=== PATIENT | female | born 1970 | race Caucasian/White ===

== ENCOUNTER 2020-12-16 00:40 | Emergency (ER) | payer SELFPAY ==
[~2020-12-16] VITALS: Ht 162.6 cm; Wt 59.0 kg
[2020-12-16 00:40] VITALS: BP 93/48
--- NOTE | 2020-12-16 00:40 | NUR ---
DIA FROM HOME ALS, PT. IS A 50 Y/O FEMALE THAT CAME INTO ED WITH C/O OF ABDOMINAL PAIN. PER [facility], PT. STATED ABOMINAL PAIN UNDER STERNUM. ADMITS TO N/V, DENIES DIARRHEA. [facility] GAVE 4MG OF ZOFRAN. PT. ALSO STATES THAT SHE HAS HERNIA THAT HAS BEEN ON AND OFF FOR 3 YEARS. GCS 15; AAOX4 PMH: HERNIA ALLERGIES NKA
--- NOTE | 2020-12-16 00:40 | NUR ---
PT BROUGHT TO BED 5 VIA [facility]
--- NOTE | 2020-12-16 01:10 | NUR ---
PT. ASKED FOR URINE SAMPLE BUT STATES "I CAN'T GO RIGHT NOW."
--- NOTE | 2020-12-16 01:29 | NUR ---
LAB AT BEDSIDE
[2020-12-16 01:40] LABS: BASOPHILS # (AUTO) 0.1 K/uL (0.00-0.22); BASOPHILS % (AUTO) 0.7 % (0.0-2.0); EOSINOPHILS # (AUTO) 0.1 K/uL (0-0.4); EOSINOPHILS % (AUTO) 1.4 % (0.0-4.0); HEMATOCRIT 34.8 % (36-48); HEMOGLOBIN 11.4 g/dL (12.0-16.0); LYMPHOCYTES # (AUTO) 1.9 K/uL (2.5-16.5); LYMPHOCYTES % (AUTO) 21.7 % (20.5-51.1); MEAN CORPUSCULAR HEMOGLOBIN 31 pg (27-31); MEAN CORPUSCULAR HGB CONC 33 g/dL (33-37); MEAN CORPUSCULAR VOLUME 93.6 fL (80-94); MONOCYTES # (AUTO) 0.6 K/uL (0.8-1.0); MONOCYTES % (AUTO) 6.8 % (1.7-9.3); NEUTROPHILS # (AUTO) 6.2 K/uL (1.8-7.7); NEUTROPHILS % (AUTO) 69.4 % (42.2-75.2); PLATELET COUNT (AUTO) 210 K/uL (140-450); RED BLOOD CELL COUNT(AUTO) 3.72 MIL/uL (4.20-5.40); WHITE BLOOD COUNT (AUTO) 8.9 K/uL (4.8-10.8)
[2020-12-16 01:52] LABS: ALBUMIN 3.5 g/dL (3.4-5.0); ANION GAP 15.5 (8-16); CARBON DIOXIDE 24.7 mmol/L (21-32); CREATININE 0.6 mg/dL (0.6-1.3); POTASSIUM 3.2 mmol/L (3.5-5.1); TOTAL BILIRUBIN 0.2 mg/dL (0.0-1.0)
[2020-12-16 02:58] LABS: APPEARANCE,URINE CLEAR (CLEAR); BILIRUBIN,URINE NEGATIVE (NEGATIVE); BLOOD, URINE NEGATIVE (NEGATIVE); COLOR,URINE YELLOW (YELLOW); LEUKOCYTE ESTERASE ,URINE NEGATIVE (NEGATIVE); NITRITE, URINE NEGATIVE (NEGATIVE); UGLUCOSE NEGATIVE (NEGATIVE)
[2020-12-16] MEDS ORDERED: NACL 0.9% 1,000 ML IV ONE (03:10)
[2020-12-16 03:40] LABS: BARBITURATE, URINE NEGATIVE ng/ml (NEG <=200); BENZODIAZEPINE, URINE NEGATIVE ng/mL (NEG <=200); CANNABINOID, URINE NEGATIVE ng/mL (NEG <=50); COCAINE, URINE NEGATIVE ng/mL (NEG <=300); OPIATE, URINE NEGATIVE ng/mL (NEG <=2000); PHENCYCLIDINE SCREEN,URINE NEGATIVE ng/mL (NEG <=25)
--- NOTE | 2020-12-16 04:00 | NUR ---
PT. SEEN IN [place] POSITION, RESTING WITH EYES CLOSED. VOICES NO COMPLAINTS AT THIS TIME.
--- NOTE | 2020-12-16 06:10 | NUR ---
PT. AMBULATED TO BATHROOM WITH EVEN AND STEADY GAIT.
[2020-12-16 06:20] VITALS: BP 99/55
--- NOTE | 2020-12-16 06:20 | NUR ---
Patient discharged with v/s stable. Written and verbal after care instructions given and explained. Patient verbalized understanding. Ambulatory with steady gait. All questions addressed prior to discharge. Advised to follow up with PMD.
== END 2020-12-16 06:20 | disposition home or self-care (01) ==
LOC: MED 00:40
DX: K85.90 Acute pancreatitis without necrosis or infection, unspecified (principal)
CPT/HCPCS: 36415; 74176; 80053; 80305; 81003; 82150; 83690; 85025; 96360; 99285; G0482

== ENCOUNTER 2023-08-27 13:17 | Emergency (ER) | payer BC ==
[~2023-08-27] VITALS: Ht 162.6 cm; Wt 65.8 kg
[2023-08-27 13:22] VITALS: BP 115/47; PULSE 78; RESP 16; TEMP 98.4; O2SAT 98
[2023-08-27] MEDS ORDERED: ONDANSETRON 4 MG ODT ONE (13:49)
[2023-08-27] MEDS: ONDANSETRON 4 MG ODT PO ONE (13:52)
[2023-08-27] MEDS: KETOROLAC 60 MG/2 ML VIAL IM ONE (13:54)
[2023-08-27] MEDS ORDERED: IBUP-2213 PO (13:56)
[2023-08-27] MEDS ORDERED: ONDA8TAB87 PO (13:56)
[2023-08-27 14:25] VITALS: BP 114/66; PULSE 77; RESP 16; TEMP 98; O2SAT 98
== END 2023-08-27 14:25 | disposition home or self-care (01) ==
LOC: MED 13:17
DX: R11.2 Nausea with vomiting, unspecified (principal); R19.7 Diarrhea, unspecified; Z72.89 Other problems related to lifestyle; Z90.49 Acquired absence of other specified parts of digestive tract; Z98.890 Other specified postprocedural states
CPT/HCPCS: 81002; 81025; 96372; 99283; J1885; Q0162